=== PATIENT | male | born 1950 | race Caucasian/White ===

== ENCOUNTER 2016-10-27 11:26 | Emergency (ER) | payer MEDICARE, OTHER ==
[~2016-10-27] VITALS: Ht 193 cm; Wt 133.0 kg
[~2016-10-27 11:26] MED LIST: ASPI325T PO; ENOX40P SQ; HYDR-3129 PO; LISI-360 PO; Z.0.COMMODE-3:1; Z.0.CPM; Z.0.WALKERFRONT
[2016-10-27 11:31] VITALS: BP 135/83; PULSE 77; RESP 18; TEMP 98.1; O2SAT 96
[2016-10-27] MEDS ORDERED: LISI10TA3 PO (11:45)
[2016-10-27] MEDS ORDERED: OXYC-433 PO (11:45)
[2016-10-27] MEDS ORDERED: VITA500T49 PO (11:45)
--- NOTE | 2016-10-27 12:18 | PD ---
HPI Chief Complaint: Musculoskeletal Complaint Time Seen by Provider: 11:45 Travel History International Travel<30 days: No Contact w/Intl Traveler<30days: No Traveled to known affect area: No History of Present Illness HPI 65-year-old male presents to the emergency room for evaluation of right foot pain and swelling for the past 2 days. Patient denies any trauma or injury. States he is in the process of moving and may have tweaked his ankle then. Pain is worsened with ambulation, dorsiflexion, and plantarflexion. Localized to the proximal midfoot without radiation. Denies paresthesias. Patient has chronic left ankle swelling but states his right foot and ankle are typically not swollen. He denies swelling anywhere else including his testicles. Only history of hypertension and chronic back pain. PFSH Past Medical History Arthritis: Yes Blood Disorders: No Cancer: No Cardiovascular Problems: Yes (HTN) Cerebrovascular Accident: No Diabetes: No Diminished Hearing: No Diverticulitis: Yes Endocrine: No Gastrointestinal Disorders: No GERD: Yes Glaucoma: No Genitourinary: No Headaches: No Hepatitis: No Hiatal Hernia: No Hypertension: Yes Immune Disorder: No Implanted Vascular Access Dvce: Yes Medical other: No Musculoskeletal: Yes (ARTHRITIS) Neurologic: No Psychiatric: No Reproductive: No Respiratory: No Immunizations Current: Yes Migraines: No Seizures: No Thyroid Disease: No Ulcer: Yes Past Surgical History Abdominal Surgery: Yes (COLON RESECTION) AICD: No Appendectomy: No Arteriovenous Shunt: No Body Medical Devices: PINS RIGHT HIP Cardiac Surgery: No Cholecystectomy: No Coronary Artery Bypass Graft: No Ear Surgery: No Endocrine Surgery: No Eye Surgery: No Genitourinary Surgery: Yes (COLONOSCOPY) Insulin Pump: No Joint Replacement: No Neurologic Surgery: No Oral Surgery: No Pacemaker: No Thoracic Surgery: No Other Surgery: Yes Social History Alcohol Use: Yes (TWICE WEEKLY) Tobacco Use: No Substance Use: No Allergies-Medications (Allergen,Severity, Reaction): Coded Allergies: No Known Allergies (Verified , 10/27/16) Reported Meds & Prescriptions Reported Meds & Active Scripts Active Walker/Adult/Folding (Device) 1 Mis Mis 1 Ea .ROUTE DIRECTED Reported Lisinopril 10 Mg Tab 10 Mg PO DAILY Vitamin B12 (Cyanocobalamin) 500 Mcg Tab 500 Mcg PO DAILY Oxycodone-Acetaminophen 10-325 mg Tab 1 Tab PO Q4H PRN Review of Systems Except as stated in HPI: all other systems reviewed are Neg Physical Exam Narrative GENERAL: Well-nourished, well-developed male in no acute distress. Afebrile. SKIN: Focused skin assessment warm/dry. No erythema or ecchymosis. HEAD: Normocephalic. EYES: No scleral icterus. No injection or drainage. NECK: Supple, trachea midline. No JVD or lymphadenopathy. CARDIOVASCULAR: Regular rate and rhythm without murmurs, gallops, or rubs. RESPIRATORY: Breath sounds equal bilaterally. No accessory muscle use. EXTREMITY: Right tire fabric impregnating range tender to palpation on the proximal, dorsal midfoot. Full range of motion in all joints. Moderate nonpitting edema. 2+ dorsalis pedis pulse. Less than 2 second capillary refill distally. Distal sensation intact. Data Data Last Documented VS Vital Signs Date Time Temp Pulse Resp B/P Pulse Ox O2 Delivery O2 Flow Rate FiO2 10/27/16 11:31 98.1 77 18 135/83 96 Orders Foot, Complete ([id number]) (10/27/16 ) Splint Or Brace Apply/Monitor (10/27/16 14:04) MDM Medical Decision Making Medical Screen Exam Complete: Yes Emergency Medical Condition: Yes Medical Record Reviewed: Yes Differential Diagnosis Foot sprain, fracture, dislocation, contusion Narrative Course 65-year-old male presents to the emergency room for evaluation of right foot pain and swelling for the past 2 days. Patient denies any specific trauma or injury. States he may have injured it while moving over the past few days. Right lower extremity is neurovascular intact with 2+ dorsalis pedis pulse. Full range of motion. Tenderness to palpation in the proximal, dorsal mid foot. No erythema or ecchymosis. Mild to moderate nonpitting edema. X-ray is negative. Patient placed in Tyler wrap and postop shoe. Discharged with instructions to follow up with podiatry if symptoms persist or return for worsening symptoms. He understands and agrees to plan. Diagnosis Primary Impression: Foot sprain Qualified Code: S93.601A - Foot sprain, right, initial encounter Referrals: Primary Care Physician Patient Instructions: Foot Sprain (ED), General Instructions Additional Instructions: Rest and drink plenty of fluids. Take ibuprofen with food as directed, as needed for pain. Apply ice to the affected area for 20 minutes at a time, as needed for pain and swelling. Follow-up with a primary care physician. Return to the emergency room for worsening symptoms. Scripts Walker/Adult/Folding 1 Mis Mis #1 EA .ROUTE DIRECTED Ref 0 Prov:Char Aiken MD 10/27/16 Disposition: 01 DISCHARGE HOME Condition: Stable [place] Oct 27, 2016 12:18
--- NOTE | 2016-10-27 13:48 | RADRPT ---
EXAM DATE/TIME: 10/27/2016 12:08 [facility] COMPARISON: No previous studies available for comparison. INDICATIONS : Patient states pain started three days ago with no known injury. Pain only when weight is applied. MEDICAL HISTORY : Diverticulitis. SURGICAL HISTORY : Total knee replacement, right. Colon resection. Right hip pinning. ENCOUNTER: Initial ACUITY: 3 days PAIN SCORE: 9/10 LOCATION: Right Foot. FINDINGS: Three view examination of the right foot demonstrates no soft tissue swelling, dislocation, or fractu re. The tarsal bones appear intact. The interphalangeal and metatarsophalangeal joints are intact. The calcaneus is intact. Bony mineralization is normal. CONCLUSION: No evidence of acute bony abnormality or significant soft tissue swelling. Hammertoe deformity of the toes. Rolando Richter MD on October 27, 2016 at 13:44 Board Certified Radiologist. This report was verified electronically.
[2016-10-27] MEDS ORDERED: WALKER/ADULT/FO1 MIS (13:59)
== END 2016-10-27 14:26 | disposition home or self-care (01) ==
LOC: PHED 11:26
DX: S93.601A Unspecified sprain of right foot, initial encounter (principal); X58.XXXA Exposure to other specified factors, initial encounter; I10 Essential (primary) hypertension; K21.9 Gastro-esophageal reflux disease without esophagitis; M19.90 Unspecified osteoarthritis, unspecified site
CPT/HCPCS: 73630; 99283; L3260